=== PATIENT | male | born 1960 | race Caucasian/White ===

== ENCOUNTER 2018-02-13 03:34 | Emergency (ER) | payer MEDICAID ==
[2018-02-13 03:44] VITALS: BMI 24.3
[2018-02-13 03:45] VITALS: TEMP 98.3
--- NOTE | 2018-02-13 04:34 | ED PDOC ---
Arrival/HPI - General Chief Complaint: Back Pain Time Seen by Provider: 02/13/18 03:48 Historian: Patient - History of Present Illness Narrative History of Present Illness (Text): 02/13/18 04:30 57 year old male, with no significant past medical history, presents to the emergency department complaining of discomfort to the right lower back/buttocks area radiating down to the right thigh. He states he does lift heavy objects wh ile at work. Patient is able to ambulate without any difficulty. Patient denies any fever, chills, chest pain, shortness of breath, nausea, abdominal pain, vomiting, diarrhea, urinary symptoms, change in bowel or urinary habits, neck pain, leg weakness, headache, dizziness, or any other complaints. PMD: Dr. Antwan Carmona Symptom Onset: Gradual Symptom Course: Unchanged Activities at Onset: Light Context: Home Past Medical History - Provider Review Nursing Documentation Reviewed: Yes - Cardiac Hx Cardiac Disorders: Yes Hx Hypertension: Yes - Endocrine/Metabolic Hx Endocrine Disorders: Yes Hx Diabetes Mellitus Type 2: Yes - Musculoskeletal/Rheumatological Hx Musculoskeletal Disorders: Yes Hx Back Pain: Yes - Psychiatric Hx Psychophysiologic Disorder: No Hx Substance Use: No Family/Social History - Physician Review Nursing Documentation Reviewed: Yes Family/Social History: No Known Family HX Smoking Status: Never Smoked Hx Alcohol Use: No Hx Substance Use: No Allergies/Home Meds Allergies/Adverse Reactions: Allergies No Known Allergies Allergy (Verified 02/13/18 03:45) Review of Systems - Physician Review All systems were reviewed & negative as marked: Yes - Review of Systems Constitutional: absent: Fevers, Other (Chills) Respiratory: absent: SOB Cardiovascular: absent: Chest Pain Gastrointestinal: absent: Abdominal Pain, Stool Changes, Diarrhea, Nausea, Vomiting Genitourinary Male: absent: Dysuria, Frequency, Hematuria Musculoskeletal: Back Pain (radiates down to right thigh). absent: Neck Pain Neurological: absent: Headache, Dizziness Physical Exam Vital Signs Reviewed: Yes Vital Signs Temp Pulse Resp BP Pulse Ox 02/13/18 03:44 98.3 F 72 16 167/97 H 99 Temperature: Afebrile Blood Pressure: Hypertensive Pulse: Regular Respiratory Rate: Normal Appearance: Positive for: Well-Appearing, Non-Toxic, Comfortable Pain Distress: None Mental Status: Positive for: Alert and Oriented X 3 - Systems Exam Head: Present: Atraumatic, Normocephalic Pupils: Present: PERRL Extroacular Muscles: Present: EOMI Conjunctiva: Present: Normal Mouth: Present: Moist Mucous Membranes Neck: Present: Normal Range of Motion Respiratory/Chest: Present: Clear to Auscultation, Good Air Exchange. No: Respiratory Distress, Accessory Muscle Use Cardiovascular: Present: Regular Rate and Rhythm, Normal S1, S2. No: Murmurs Abdomen: No: Tenderness, Distention, Peritoneal Signs Genitourinary Male: Present: Other (Testes descended bilaterally ). No: Testicle Tenderness, Hernias (no inguinal hernia), Testicle Swelling Back: Present: Normal Inspection, Other ((+)Discomfort over the right sciatic notch (-) dorsalspinal tenderness). No: CVA Tenderness Upper Extremity: Present: Normal Inspection, Normal ROM, Neurovascularly Intact. No: Cyanosis, Edema Lower Extremity: Present: Normal Inspection, Normal ROM, Neurovascularly Intact. No: Edema Neurological: Present: GCS=15, CN II-XII Intact, Speech Normal, Motor Func Grossly Intact, Normal Sensory Function Skin: Present: Warm, Dry, Normal Color. No: Rashes Psychiatric: Present: Alert, Oriented x 3, Normal Insight, Normal Concentration Medical Decision Making ED Course and Treatment: 02/13/18 04:35 Impression: 57 year old male presents complaining of discomfort to the right lower back/buttocks area radiating down to the right thigh. Plan: -- Flexeril, Toradol. -- LS Spine w/ Obl x-ray -- Reassess and disposition Progress Notes: 02/13/18 05:50 LS Spine x-ray Impression: As read by me, no acute process. 02/13/18 06:02 On re-evaluation, patient feels better and is in no acute distress. I have discussed the results and plan with the patient, who expresses understanding. Patient in agreement with plan to be discharged home. Patient is stable for discharge. Patient was instructed to follow up with physician or return if symptoms worsen or new concerning symptoms arise. - RAD Interpretation Radiology Orders: 02/13/18 04:18 LS SPINE WITH OBL > 18 YRS OLD [RAD] Stat - Medication Orders Current Medication Orders: Discontinued Medications Cyclobenzaprine HCl (Flexeril) 10 mg PO ONCE ONE Stop: 02/13/18 04:19 Ketorolac Tromethamine (Toradol) 60 mg IM ONCE ONE Stop: 02/13/18 04:19 - Scribe Statement The provider has reviewed the documentation as recorded by the aCtherine Farmer Provider Catherine Attestation: All medical record entries made by the Carlosibe were at my direction and per sonally dictated by me. I have reviewed the chart and agree that the record accurately reflects my personal performance of the history, physical exam, medical decision making, and the department course for this patient. I have also personally directed, reviewed, and agree with the discharge instructions and disposition. Disposition/Present on Arrival - Present on Arrival Any Indicators Present on Arrival: No History of DVT/PE: No History of Uncontrolled Diabetes: No Urinary Catheter: No History of Decub. Ulcer: No History Surgical Site Infection Following: None - Disposition Have Diagnosis and Disposition been Completed?: Yes Diagnosis: Sciatica Disposition: HOME/ ROUTINE Disposition Time: 05:55 Patient Plan: Discharge Condition: GOOD Discharge Instructions (ExitCare): Sciatica (DC) Additional Instructions: Rest/no strenuous physical activity or heavy lifting next few days/take meds as prescribed/follow up with your doctor this week Prescriptions: Cyclobenzaprine [Cyclobenzaprine HCl] 10 mg PO TID PRN #15 tab PRN Reason: Muscle Spasm Naproxen [Naprosyn] 500 mg PO BID PRN #14 tab PRN Reason: Pain Referrals: Triston Carmona MD [Primary Care Provider] - Follow up with primary Forms: [email or web address] (Swedish)
[2018-02-13 06:51] VITALS: BP 135/78; PULSE 76; RESP 17; O2SAT 100
--- NOTE | 2018-02-13 10:45 | RAD ---
Date of service: 02/13/2018 PROCEDURE: Radiographs of the Lumbar Spine. HISTORY: Back Pain. No history of recent/ related trauma provided COMPARISON: No prior. FINDINGS: BONES: Normal alignment. No listhesis. No fracture. DISC SPACES: Unremarkable. OTHER FINDINGS: Calcified nonaneurysmal abdominal aorta. IMPRESSION: Unremarkable radiographs of the lumbar spine.
== END 2018-02-13 05:50 | disposition home or self-care (01) ==
LOC: ED 03:34
DX: M54.30 Sciatica, unspecified side (principal); I10 Essential (primary) hypertension; E11.9 Type 2 diabetes mellitus without complications
CPT/HCPCS: 72110; 96372; 99283; J1885